=== PATIENT | male | born 1970 | race Caucasian/White ===

== ENCOUNTER 2018-04-07 15:25 | Emergency (ER) | payer MEDICAID, OTHER ==
[~2018-04-07] VITALS: Ht 175.3 cm; Wt 101.6 kg
[2018-04-07 15:35] VITALS: BP 122/72
[2018-04-07] MEDS ORDERED: TDAP [DIPH/PERTUSSIS/TET] 0.5 ML VIAL IM ONE ×2 (16:00)
== END 2018-04-07 16:10 | disposition home or self-care (01) ==
LOC: ER 15:34
DX: S81.811A Laceration without foreign body, right lower leg, initial encounter (principal); F17.200 Nicotine dependence, unspecified, uncomplicated; Z86.19 Personal history of other infectious and parasitic diseases; W22.8XXA Striking against or struck by other objects, initial encounter; Y93.89 Activity, other specified; Y92.89 Other specified places as the place of occurrence of the external cause; Y99.8 Other external cause status
CPT/HCPCS: 90471; 90715; 99283; A4606; A6402

== ENCOUNTER 2019-12-17 17:14 | Emergency (ER) | payer OTHER ==
[~2019-12-17] VITALS: Ht 175.3 cm; Wt 110.7 kg
[2019-12-17 17:33] VITALS: BP 144/92
[2019-12-17] MEDS ORDERED: ACETAMINOPHEN ES 500 MG TABLET ONE ×2 (17:46→17:47)
[2019-12-17] MEDS: ACETAMINOPHEN ES 500 MG TABLET PO ONE (17:49)
--- NOTE | 2019-12-17 18:12 | NUR ---
L hand wound repair using skin glue given.
== END 2019-12-17 18:20 | disposition home or self-care (01) ==
LOC: ER 17:24
DX: S61.412A Laceration without foreign body of left hand, initial encounter (principal); W26.0XXA Contact with knife, initial encounter; Y93.89 Activity, other specified; Y92.89 Other specified places as the place of occurrence of the external cause; Y99.8 Other external cause status